=== PATIENT | female | born 2000 | race Hispanic/Latino ===

== ENCOUNTER 2022-08-02 12:00 | Inpatient (IN) | payer MEDICAID, OTHER ==
[2022-08-01 13:41] LABS: Hemoglobin 12.4 g/dL (12.0-15.5); Platelet Count 158 10x3/uL (150-450)
[2022-08-01 14:13] LABS: Syphilis Antibody Nonreactive (Nonreactive)
[2022-08-01 14:15] LABS: HBSAg Index 0.34 S/CO (0-0.99); Hep B Surf Ag Non-Reactive S/CO (NonReactive)
[2022-08-02 16:21] VITALS: BMI 38.5
[2022-08-02] MEDS ORDERED: Bicitra 30 ML UDCUP PO PRN (16:46)
[2022-08-02] MEDS ORDERED: Tranexamic Acid 1,000 MG/10 ML VIAL IVP PRN (16:46)
[2022-08-02] MEDS ORDERED: Promethazine HCl 25 MG/ML VIAL IM PRN (16:46)
[2022-08-02] MEDS ORDERED: CEFAZOLIN 2 GM in Sodium Chloride 0.9% 100 ML IVPB SCH (16:46)
[2022-08-02] MEDS ORDERED: Famotidine/PF 20 mg/2ml Vial SLOW IVP PRN (16:46)
[2022-08-02] MEDS ORDERED: Methylergonovine 0.2 MG/ML VIAL IM PRN (16:46)
[2022-08-02] MEDS ORDERED: Carboprost 250 MCG/ML AMP IM PRN (16:46)
[2022-08-02] MEDS ORDERED: Diphenoxylate HCl/Atropine Tablet PO PRN (16:46)
[2022-08-02] MEDS ORDERED: hydrALAZINE 20 MG/ML VIAL SLOW IVP PRN (16:46)
[2022-08-02] MEDS ORDERED: Misoprostol 200 MCG TAB PR PRN (16:46)
[2022-08-02] MEDS ORDERED: Ondansetron PF 4 MG/2 ML Vial IVP PRN (16:46)
[2022-08-02] MEDS ORDERED: NS w/ Oxytocin 30 units 500 ML IV SCH (16:46)
[2022-08-02] MEDS ORDERED: Fentanyl 100 MCG/2 ML VIAL ONE (17:17)
[2022-08-02] MEDS ORDERED: Morphine PF 10 MG/10 ML VIAL ONE (17:17)
[2022-08-02] MEDS ORDERED: Oxytocin 10 UNITS/ML VIAL ONE (17:19)
[2022-08-02] MEDS ORDERED: Phenylephrine 40 MG/NS 250 ML 250 ML ONE (17:19)
[2022-08-02] MEDS ORDERED: PHENYLEPHRINE-NS 100 MCG/ML 10 ML SYRINGE ONE ×3 (17:37→18:16)
[2022-08-02] MEDS ORDERED: Metoclopramide HCl 10 MG/2 ML VIAL ONE (17:39)
[2022-08-02] MEDS ORDERED: Ondansetron PF 4 MG/2 ML Vial ONE ×2 (17:39→17:52)
[2022-08-02] MEDS ORDERED: Promethazine HCl 25 MG/ML VIAL ONE (17:48)
[2022-08-02] MEDS ORDERED: Dexamethasone 4 mg/ml Vial ONE (17:52)
[2022-08-02] MEDS ORDERED: ePHEDrine Sulfate 50 MG/10 ML VIAL ONE (17:59)
[2022-08-02] MEDS: Lactated Ringer's 1,000 ML IV SCH (19:48)
[2022-08-03] MEDS ORDERED: diphenhydrAMINE 50 MG/ML VIAL IVP PRN (07:26)
[2022-08-03] MEDS ORDERED: Ondansetron HCl/PF 4 MG/2 ML Vial IVP PRN (07:26)
[2022-08-03] MEDS ORDERED: Ondansetron PF 4 MG/2 ML Vial IVP PRN ×2 (07:26→08:02)
[2022-08-03] MEDS ORDERED: Naloxone HCl 0.4 mg/ml Vial IVP PRN ×2 (07:26)
[2022-08-03] MEDS ORDERED: Meperidine HCl/PF 25 MG/ML VIAL SLOW IVP PRN (07:26)
[2022-08-03] MEDS ORDERED: Promethazine HCl 25 MG SUPP PR PRN (07:26)
[2022-08-03] MEDS ORDERED: Moisturizing Cream (Eucerin) 113 GM JAR TOP PRN (07:26)
[2022-08-03] MEDS ORDERED: Fentanyl 100 MCG/2 ML VIAL SLOW IVP PRN (07:26)
[2022-08-03] MEDS ORDERED: Promethazine HCl 25 MG/ML VIAL IM PRN ×2 (07:26→08:02)
[2022-08-03] MEDS ORDERED: Ketorolac Tromethamine 30 MG/ML VIAL IVP PRN (07:26)
[2022-08-03] MEDS ORDERED: [UNRECOGNIZED DRUG - REMARK] FS PRN (07:30)
[2022-08-03] MEDS ORDERED: Ketorolac Tromethamine 30 MG/ML VIAL IVP SCH (07:30)
[2022-08-03] MEDS ORDERED: diphenhydrAMINE 25 MG CAP PO PRN (08:02)
[2022-08-03] MEDS ORDERED: HYDROcodone/Acetaminophen 5/325 mg Tablet PO PRN (08:02)
[2022-08-03] MEDS ORDERED: Simethicone Chewable 80 MG TAB PO PRN (08:02)
[2022-08-03] MEDS ORDERED: Bisacodyl 10 MG SUPP PR PRN (08:02)
[2022-08-03] MEDS ORDERED: hydrALAZINE 20 MG/ML VIAL SLOW IVP PRN (08:02)
[2022-08-03] MEDS ORDERED: Lanolin Ointment 7 GM TUBE TOP PRN (08:02)
[2022-08-03] MEDS: HYDROcodone/Acetaminophen 5/325 mg Tablet PO PRN ×2 (08:58→13:08)
[2022-08-03] MEDS: Docusate 100 MG CAP PO SCH ×2 (09:00→21:26)
[2022-08-03] MEDS: Prenatal Vitamin 1 TAB PO SCH (09:00)
[2022-08-03] MEDS: Ketorolac Tromethamine 30 MG/ML VIAL IVP SCH ×2 (09:00→15:02)
[2022-08-03] MEDS ORDERED: Boostrix 0.5 ML (Tdap) VIAL (>/=7 yrs of age) IM ONE (09:00)
[2022-08-03 09:41] LABS: Hemoglobin 11.1 g/dL (12.0-15.5); Mean Corpuscular HGB CONC 33.4 g/dL (32.0-36.0); Mean Corpuscular Hemoglobin 29.4 pg (27.0-33.0); Mean Corpuscular Volume 88.1 fl (81.6-98.3); Mean Platelet Volume 11.5 fl (7.4-10.4); Platelet Count 146 10x3/uL (150-450); RBC Distribution Width 13.5 % (11.5-14.5); Red Blood Cell (RBC) Count 3.77 10x6/uL (3.90-5.03); White Blood Cell (WBC) Count 11.2 10x3/uL (3.5-10.5)
[2022-08-03] MEDS: Ferrous Sulfate 325 MG TAB PO SCH ×2 (13:12→21:29)
[2022-08-03] MEDS: Naloxone HCl 0.4 mg/ml Vial IV PRN ×3 (15:02→15:35)
[2022-08-03] MEDS: Ibuprofen 800 MG TAB PO SCH (21:27)
[2022-08-04] MEDS: Ibuprofen 800 MG TAB PO SCH ×3 (06:31→21:32)
[2022-08-04] MEDS: Ferrous Sulfate 325 MG TAB PO SCH (07:33)
[2022-08-04] MEDS: Prenatal Vitamin 1 TAB PO SCH (09:14)
[2022-08-04] MEDS: Docusate 100 MG CAP PO SCH ×2 (09:14→21:32)
[2022-08-04] MEDS: HYDROcodone/Acetaminophen 5/325 mg Tablet PO PRN (09:17)
[2022-08-04] MEDS: Lactated Ringer's 1,000 ML IV SCH (09:37)
[2022-08-05] MEDS: Ibuprofen 800 MG TAB PO SCH ×2 (05:12→13:03)
[2022-08-05] MEDS: Ferrous Sulfate 325 MG TAB PO SCH ×2 (08:00→12:16)
[2022-08-05 08:52] VITALS: BP 121/62; TEMP 97.6
[2022-08-05] MEDS: Docusate 100 MG CAP PO SCH (09:48)
[2022-08-05] MEDS: Prenatal Vitamin 1 TAB PO SCH (09:48)
== END 2022-08-05 14:35 | disposition home or self-care (01) | DRG 788 ==
LOC: CSHLD 15:54 → CSHPP 21:30
PROVIDERS: ADMIT Family Medicine; ATTEND Family Medicine
PROC: 10D00Z1 Extraction of Products of Conception, Low, Open Approach (ICD-10-PCS; principal; 2022-08-02)
DX: O34.211 Maternal care for low transverse scar from previous cesarean delivery (principal); Z3A.40 40 weeks gestation of pregnancy; Z37.0 Single live birth; Z79.899 Other long term (current) drug therapy
CPT/HCPCS: 36415; 51702; 85014; 85018; 85027; 85049; 86780; 86850; 86900; 86901; 87340; J1100; J1885; J2274; J2310; J2405; J2550; J2590; J2765; J3010; J3490; S0028

== ENCOUNTER 2025-02-10 08:14 | Emergency (ER) | payer SELFPAY ==
[2025-02-10 08:50] LABS: #Basophils 0.04 10x3/uL (0.0-0.2); #Eosinophils 0.14 10x3/uL (0.0-0.5); #Monocytes 0.40 10x3/uL (0.0-1.1); #Neutrophils 1.98 10x3/uL (1.5-8.4); %Basophils 0.9 % (0.0-2.0); %Eosinophils 3.1 % (0.0-6.0); %Lymphocytes 43.6 % (18.0-47.0); %Monocytes 8.8 % (0.0-10.0); %Neutrophils 43.4 % (40.0-75.0); Hematocrit 38.4 % (34.9-44.5); Hemoglobin 13.2 g/dL (12.0-15.5); Mean Corpuscular Hemoglobin 27.9 pg (27.0-33.0); Mean Corpuscular Volume 81.2 fL (81.6-98.3); Platelet Count 264 10x3/uL (150-450); Red Blood Cell (RBC) Count 4.73 10x6/uL (3.90-5.03); White Blood Cell (WBC) Count 4.56 10x3/uL (3.5-10.5)
[2025-02-10 08:52] LABS: Glucose, Urine (Dipstick) Normal (Negative); Leukocyte 25 (Negative); Protein, Urine (Dipstick) 30 mg/dl (Neg-Trace); Specific Gravity, Urine 1.020 (1.005-1.030)
[2025-02-10 08:54] LABS: Pregnancy Test - Urine (BHCG) Negative (Negative); Pregu Control Background? CLEAR/WHITE (CLR/WHITE); Pregu Control Bar Appear? YES (CONTROL BAR)
[2025-02-10 09:09] LABS: AST (SGOT) 27 U/L (11-34); Albumin 4.7 g/dL (3.1-4.5); Alkaline Phosphatase 61 U/L (40-110); Anion Gap 11 mmol/L (10-20); BUN (Urea Nitrogen) 12 mg/dL (7.0-18.7); Bilirubin, Total 0.4 mg/dL (0.3-1.2); Calc. Creatinine Clearance 0 mL/min (70-130); Calcium 9.2 mg/dL (7.8-10.44); Carbon Dioxide 24 mmol/L (22-29); Chloride 107 mmol/L (98-107); Globulin 3.6 g/dL (2.4-3.5); Glucose 85 mg/dL (70-105); Lipase 22 U/L (8-78); Potassium 3.7 mmol/L (3.5-5.1); Sodium 138 mmol/L (136-145)
[2025-02-10 09:12] LABS: Bacteria/HPF 2+ HPF (None Seen); CAUTI Indications for Culture Pelvic or flank pain; RBC/HPF 0-3 HPF (0-3)
[2025-02-10 09:13] LABS: Urine Culture Reflex No No
[2025-02-10 09:27] LABS: ALT (SGPT) 19 U/L (Less than 34)
[2025-02-11 00:46] LABS: Chlamydia by PCR, Vaginal Swab Not Detected (NotDetected); GC by PCR, Vaginal Swab Not Detected (NotDetected)
== END 2025-02-10 11:12 | disposition home or self-care (01) ==
LOC: CSHERS 08:14
DX: D25.9 Leiomyoma of uterus, unspecified (principal); Z55.6 Problems related to health literacy
CPT/HCPCS: 36415; 76856; 80053; 81001; 81025; 83690; 85025; 87480; 87491; 87510; 87591; 87660